=== PATIENT | female | born 1960 | race Caucasian/White ===

== ENCOUNTER 2019-09-04 20:05 | Emergency (ER) | payer SELFPAY ==
[~2019-09-04] VITALS: Ht 160 cm; Wt 80.0 kg
[2019-09-04] MEDS ORDERED: magnesium 2GM in 50ml NS 50 ML IV ONE (20:30)
[2019-09-04] MEDS ORDERED: acetaminophen 325mg tablet PO ONE (20:30)
[2019-09-04] MEDS ORDERED: aspirin 325mg tablet PO ONE (20:30)
[2019-09-04] MEDS ORDERED: normal saline 1000ml 1,000 ML IV ONE (20:30)
[2019-09-04 20:43] LABS: BASOPHILS # (AUTO) 0.1 X10'3 (0-0.2); EOSINOPHILS # (AUTO) 0.1 X10'3 (0-0.9); EOSINOPHILS % (AUTO) 1.4 % (0-6); HEMATOCRIT 45.6 % (35.0-45.0); HEMOGLOBIN 15.7 g/dl (12.0-16.0); LYMPHOCYTES # (AUTO) 2.4 X10'3 (1.1-4.8); LYMPHOCYTES % (AUTO) 24.5 % (21-51); MEAN CORPUSCULAR HEMOGLOBIN 30.2 PG (27.0-31.0); MEAN CORPUSCULAR HGB CONC 34.5 g/dL (33.0-36.5); MEAN CORPUSCULAR VOLUME 87.3 FL (78-98); MEAN PLATELET VOLUME 9.4 FL (7.4-10.4); MONOCYTES # (AUTO) 0.6 X10'3 (0-0.9); MONOCYTES % (AUTO) 6.1 % (2-12); NEUTROPHILS # (AUTO) 6.6 X10'3 (1.8-7.7); PLATELET COUNT 255 X10'3 (140-440); RED BLOOD COUNT 5.22 X10'6 (4.20-5.60); RED CELL DISTRIBUTION WIDTH 12.8 % (11.5-14.5); WHITE BLOOD COUNT 9.9 X10'3 (4.5-11.0)
[2019-09-04 20:45] LABS: CLARITY,URINE CLEAR (Clear); COLOR,URINE STRAW (Yellow); GLUCOSE, URINE NEGATIVE (Neg); KETONES,URINE NEGATIVE (Neg); LEUKOCYTE ESTERASE ,URINE SMALL (Neg); NITRITES, URINE NEGATIVE (Neg); OCCULT BLOOD,URINE NEGATIVE (Neg); PROTEIN,URINE NEGATIVE (Neg); UROBILINOGEN,URINE 0.2 E.U/dL (0.2-1.0)
[2019-09-04 20:52] LABS: UA COLLECTION TYPE CLN CATCH MIDSTREAM
[2019-09-04 20:53] LABS: BACTERIA,URINE NONE SEEN /HPF (Neg); RBC,URINE NONE SEEN /HPF (0-2); SQUAMOUS EPITHELIAL CELL,UR FEW /LPF (FEW)
[2019-09-04 20:54] LABS: WBC,URINE 0-4 /HPF (0-4)
[2019-09-04 20:55] LABS: ALANINE AMINOTRANSFERASE 31 U/L (12-78); ALBUMIN/GLOBULIN RATIO 1.1 (1.1-1.5); ALKALINE PHOSPHATASE 80 IU/L (46-116); ANION GAP 10 (8-16); ASPARTATE AMINO TRANSFERASE 16 U/L (10-37); BILIRUBIN,TOTAL 0.4 MG/DL (0.1-1.0); BLOOD UREA NITROGEN 19 MG/DL (7-18); BUN/CREATININE RATIO 20.2 (6.6-38.0); CALCIUM 9.6 MG/DL (8.5-10.1); CHLORIDE 108 MMOL/L (99-107); CREATININE 0.94 MG/DL (0.40-0.90); GLUCOSE 162 MG/DL (70-104); POTASSIUM 4.1 MMOL/L (3.5-5.1); SODIUM 143 MMOL/L (135-145); TOTAL PROTEIN 7.7 G/DL (6.4-8.2); eGFR 61 ML/MIN
[2019-09-04 20:57] LABS: PARTIAL THROMBOPLASTIN TIME 31 SECONDS (22-32)
--- NOTE | 2019-09-04 21:52 | NUR ---
pt ambulatory to restroom and back to bed. visitor at bedside. pt denies needs at this time.
[2019-09-04 23:02] VITALS: BP 121/67
== END 2019-09-05 00:03 | disposition home or self-care (01) ==
LOC: ER 20:06
DX: R00.2 Palpitations (principal); E07.9 Disorder of thyroid, unspecified
CPT/HCPCS: 36415; 71045; 80053; 81001; 84484; 85025; 85610; 85730; 87088; 93005; 96365; 99284; J3475; J7030

== ENCOUNTER 2020-04-08 13:50 | Emergency (ER) | payer SELFPAY ==
[~2020-04-08] VITALS: Ht 160 cm; Wt 90.0 kg
[2020-04-08 14:20] LABS: BASOPHILS # (AUTO) 0.1 X10'3 (0-0.2); EOSINOPHILS # (AUTO) 0.1 X10'3 (0-0.9); EOSINOPHILS % (AUTO) 0.7 % (0-6); HEMATOCRIT 42.8 % (35.0-45.0); HEMOGLOBIN 14.7 g/dl (12.0-16.0); LYMPHOCYTES # (AUTO) 1.8 X10'3 (1.1-4.8); LYMPHOCYTES % (AUTO) 20.5 % (21-51); MEAN CORPUSCULAR HEMOGLOBIN 30.1 PG (27.0-31.0); MEAN CORPUSCULAR HGB CONC 34.4 g/dL (33.0-36.5); MEAN CORPUSCULAR VOLUME 87.5 FL (78-98); MEAN PLATELET VOLUME 8.9 FL (7.4-10.4); MONOCYTES # (AUTO) 0.5 X10'3 (0-0.9); MONOCYTES % (AUTO) 5.7 % (2-12); NEUTROPHILS # (AUTO) 6.3 X10'3 (1.8-7.7); NEUTROPHILS % (AUTO) 72.1 % (42-75); PLATELET COUNT 238 X10'3 (140-440); RED BLOOD COUNT 4.89 X10'6 (4.20-5.60); WHITE BLOOD COUNT 8.7 X10'3 (4.5-11.0)
[2020-04-08 14:32] LABS: D-DIMER 0.29 MG/L FEU (0-0.50)
[2020-04-08 14:33] LABS: ALANINE AMINOTRANSFERASE 75 U/L (12-78); ALBUMIN 3.9 G/DL (3.4-5.0); ALBUMIN/GLOBULIN RATIO 1.3 (1.1-1.5); ALKALINE PHOSPHATASE 84 IU/L (46-116); ANION GAP 12 (8-16); ASPARTATE AMINO TRANSFERASE 35 U/L (10-37); BILIRUBIN,TOTAL 0.5 MG/DL (0.1-1.0); BLOOD UREA NITROGEN 11 MG/DL (7-18); BUN/CREATININE RATIO 11.8 (6.6-38.0); CALCIUM 9.7 MG/DL (8.5-10.1); CHLORIDE 106 MMOL/L (99-107); CREATININE 0.93 MG/DL (0.40-0.90); GLUCOSE 149 MG/DL (70-104); POTASSIUM 3.9 MMOL/L (3.5-5.1); SODIUM 142 MMOL/L (135-145); TOTAL CARBON DIOXIDE 23.8 MMOL/L (24-32); eGFR 61 ML/MIN
[2020-04-08 14:40] LABS: MAGNESIUM 2.4 MG/DL (1.5-2.4)
[2020-04-08 15:21] VITALS: BP 144/60
== END 2020-04-08 15:22 | disposition home or self-care (01) ==
LOC: ER 13:50
DX: R07.89 Other chest pain (principal)
CPT/HCPCS: 36415; 71045; 80053; 83735; 83880; 84484; 85025; 85379; 93005; 99285

== ENCOUNTER 2022-09-14 20:24 | Inpatient (IN) | payer SELFPAY ==
[~2022-09-14] VITALS: Ht 160 cm; Wt 88.6 kg
[2022-09-14 21:10] LABS: BASOPHILS # (AUTO) 0.1 X10'3 (0-0.2); BASOPHILS % (AUTO) 1.1 % (0-1); EOSINOPHILS # (AUTO) 0.1 X10'3 (0-0.9); EOSINOPHILS % (AUTO) 0.9 % (0-6); HEMATOCRIT 42.5 % (35.0-45.0); HEMOGLOBIN 14.3 g/dl (12.0-16.0); LYMPHOCYTES # (AUTO) 1.8 X10'3 (1.1-4.8); LYMPHOCYTES % (AUTO) 15.8 % (21-51); MEAN CORPUSCULAR HEMOGLOBIN 29.3 PG (27.0-31.0); MEAN CORPUSCULAR HGB CONC 33.6 g/dL (33.0-36.5); MEAN CORPUSCULAR VOLUME 87.1 FL (78-98); MEAN PLATELET VOLUME 8.7 FL (7.4-10.4); MONOCYTES # (AUTO) 0.7 X10'3 (0-0.9); NEUTROPHILS # (AUTO) 8.5 X10'3 (1.8-7.7); NEUTROPHILS % (AUTO) 76.2 % (42-75); PLATELET COUNT 235 X10'3 (140-440); RED BLOOD COUNT 4.88 X10'6 (4.20-5.60); RED CELL DISTRIBUTION WIDTH 13.1 % (11.5-14.5); WHITE BLOOD COUNT 11.2 X10'3 (4.5-11.0)
[2022-09-14 21:26] LABS: ALANINE AMINOTRANSFERASE 128 U/L (12-78); ALBUMIN 3.8 G/DL (3.4-5.0); ALBUMIN/GLOBULIN RATIO 1.2 (1.1-1.5); ALKALINE PHOSPHATASE 116 IU/L (46-116); ANION GAP 8 (8-16); ASPARTATE AMINO TRANSFERASE 51 U/L (10-37); BILIRUBIN,TOTAL 0.4 MG/DL (0.1-1.0); BLOOD UREA NITROGEN 16 MG/DL (7-18); BUN/CREATININE RATIO 17.8 (6.6-38.0); CALCIUM 9.1 MG/DL (8.5-10.1); CHLORIDE 103 MMOL/L (99-107); GLUCOSE 205 MG/DL (70-104); POTASSIUM 3.9 MMOL/L (3.5-5.1); SODIUM 139 MMOL/L (135-145); TOTAL CARBON DIOXIDE 28.2 MMOL/L (24-32); TOTAL PROTEIN 7.1 G/DL (6.4-8.2); eGFR 63 ML/MIN
[2022-09-14] MEDS ORDERED: mag hydrox/Alum hydrox/simeth 30ml oral suspension PO PRN (23:35)
[2022-09-14] MEDS ORDERED: PERFLUTREN PROTEIN-A MICROSPHR (Optison) 0.22 MG/ML 3ML VIAL IV ONE (23:35)
[2022-09-14] MEDS ORDERED: regadenoson 0.4mg/5ml syringe IV PRN (23:35)
[2022-09-14] MEDS ORDERED: potassium Cl 20 mEq SR tablet PO PRN ×2 (23:35)
[2022-09-14] MEDS ORDERED: ondansetron/PF 4mg/2ml inj IV PRN (23:35)
[2022-09-14] MEDS ORDERED: potassium Cl 40MEQ/1/2NS 520ml 520 ML IV PRN (23:35)
[2022-09-14] MEDS ORDERED: magnesium hydroxide 30ml (MOM) UD suspension PO PRN (23:35)
[2022-09-14] MEDS ORDERED: magnesium 4gm in 100ml NS 100 ML IV PRN (23:35)
[2022-09-14] MEDS ORDERED: magnesium Cl slow-release 64mg tablet PO PRN (23:35)
[2022-09-14] MEDS ORDERED: nitroGLYCERIN 0.4mg SUBLingual tab SL PRN (23:35)
[2022-09-14] MEDS ORDERED: aminophylline 500mg/20ml vial IV PRN (23:35)
[2022-09-14] MEDS ORDERED: normal saline 1000ml 1,000 ML IV SCH (23:35)
[2022-09-14] MEDS ORDERED: acetaminophen 325mg tablet PO PRN (23:35)
[2022-09-14] MEDS ORDERED: metoprolol tartrate 1mg/ml inj IV PRN (23:35)
[2022-09-14] MEDS ORDERED: insulin Lispro (HumaLOG) vial - multi-dose SQ SCH (23:40)
[2022-09-14] MEDS ORDERED: dextrose 50%-water 50ml dispensing syringe IV PRN ×2 (23:40)
[2022-09-14] MEDS ORDERED: DEXTROSE 15 GM of carb/4 tabs (each vial/BOTTLE has 4 tablets) PO PRN ×2 (23:40)
[2022-09-14] MEDS ORDERED: MESSAGE TO PHARMACY PO ONE (23:40)
[2022-09-14] MEDS ORDERED: glucagon, human recombinant 1mg kit SUBCUT PRN (23:40)
[2022-09-14] MEDS ORDERED: BUPR100T15 PO (23:55)
[2022-09-15] VITALS (11 sets, daily range): BP systolic 109–146; BP diastolic 52–89
[2022-09-15] MEDS ORDERED: CHOL10006 PO (01:26)
[2022-09-15] MEDS ORDERED: CYAN100097 PO (01:26)
[2022-09-15] MEDS ORDERED: LEVO50TA PO (01:26)
[2022-09-15] MEDS ORDERED: VITA-288 PO (01:29)
[2022-09-15 07:13] LABS: BASOPHILS # (AUTO) 0.1 X10'3 (0-0.2); BASOPHILS % (AUTO) 0.8 % (0-1); EOSINOPHILS # (AUTO) 0.1 X10'3 (0-0.9); EOSINOPHILS % (AUTO) 0.8 % (0-6); HEMATOCRIT 41.8 % (35.0-45.0); HEMOGLOBIN 14.3 g/dl (12.0-16.0); LYMPHOCYTES # (AUTO) 1.4 X10'3 (1.1-4.8); MEAN CORPUSCULAR HEMOGLOBIN 29.7 PG (27.0-31.0); MEAN CORPUSCULAR HGB CONC 34.2 g/dL (33.0-36.5); MEAN CORPUSCULAR VOLUME 86.9 FL (78-98); MEAN PLATELET VOLUME 8.8 FL (7.4-10.4); MONOCYTES # (AUTO) 0.6 X10'3 (0-0.9); MONOCYTES % (AUTO) 6.1 % (2-12); NEUTROPHILS # (AUTO) 7.2 X10'3 (1.8-7.7); NEUTROPHILS % (AUTO) 77.3 % (42-75); PLATELET COUNT 221 X10'3 (140-440); RED CELL DISTRIBUTION WIDTH 13.4 % (11.5-14.5); WHITE BLOOD COUNT 9.3 X10'3 (4.5-11.0)
[2022-09-15 07:50] LABS: ALANINE AMINOTRANSFERASE 118 U/L (12-78); ALBUMIN 3.8 G/DL (3.4-5.0); ALBUMIN/GLOBULIN RATIO 1.2 (1.1-1.5); ALKALINE PHOSPHATASE 117 IU/L (46-116); ANION GAP 10 (8-16); ASPARTATE AMINO TRANSFERASE 47 U/L (10-37); BILIRUBIN,TOTAL 0.7 MG/DL (0.1-1.0); BLOOD UREA NITROGEN 15 MG/DL (7-18); BUN/CREATININE RATIO 17.2 (6.6-38.0); CALCIUM 8.9 MG/DL (8.5-10.1); CHLORIDE 103 MMOL/L (99-107); CREATININE 0.87 MG/DL (0.40-0.90); GLUCOSE 166 MG/DL (70-104); MAGNESIUM 2.2 MG/DL (1.5-2.4); SODIUM 139 MMOL/L (135-145); TOTAL PROTEIN 6.9 G/DL (6.4-8.2); eGFR 66 ML/MIN
[2022-09-15] MEDS ORDERED: docusate sod 100mg capsule PO SCH (08:00)
[2022-09-15] MEDS ORDERED: heparin, porcine 5000 units/ml vial SQ SCH (08:00)
[2022-09-15] MEDS ORDERED: cyanocobalamin 500mcg tablet PO SCH (08:00)
[2022-09-15] MEDS ORDERED: levoTHYROXINE 25mcg tablet PO SCH (08:00)
[2022-09-15] MEDS ORDERED: cholecalciferol (vitamin D3) 1,000 unit (25mcg) tablet PO SCH (08:00)
[2022-09-15] MEDS ORDERED: vitamin E 400 unit capsule PO SCH (08:00)
[2022-09-15] MEDS ORDERED: aspirin 325mg tablet, delayed-release (Ecotrin) PO SCH (08:00)
[2022-09-15] MEDS ORDERED: K and/or MAG REPLACEMENT MC SCH (08:00)
[2022-09-15] MEDS ORDERED: buPROPion SR 100mg tab PO SCH (08:00)
--- NOTE | 2022-09-15 10:10 | NUR ---
Pt to Nuc Med on monitor with RN. Pt able to transfer self from bed to wheelchair without assistance. No chest pain/discomfort, no SOB.
[2022-09-15] MEDS ORDERED: aminophylline inj. 10 ML IV ONE (11:34)
--- NOTE | 2022-09-15 12:45 | NUR ---
PT BACK TO ROOM 6, REPORT TO JASON MOYER
== END 2022-09-15 14:25 | disposition home or self-care (01) | DRG 392 ==
LOC: ER 20:24 → ED HOLD 23:35
PROVIDERS: ADMIT Internal Medicine; ATTEND Family Medicine
PROC: 4A02XM4 Measurement of Cardiac Total Activity, External Approach (ICD-10-PCS; principal; 2022-09-15)
PROC: 3E033HZ Introduction of Radioactive Substance into Peripheral Vein, Percutaneous Approach (ICD-10-PCS; 2022-09-15)
DX: K21.9 Gastro-esophageal reflux disease without esophagitis (principal); R07.89 Other chest pain; E03.9 Hypothyroidism, unspecified; E66.9 Obesity, unspecified; E78.5 Hyperlipidemia, unspecified; K76.0 Fatty (change of) liver, not elsewhere classified; E11.9 Type 2 diabetes mellitus without complications; R74.01 Elevation of levels of liver transaminase levels; Z79.84 Long term (current) use of oral hypoglycemic drugs; Z79.890 Hormone replacement therapy; Z80.9 Family history of malignant neoplasm, unspecified; Z68.34 Body mass index [BMI] 34.0-34.9, adult; Z79.899 Other long term (current) drug therapy
CPT/HCPCS: 36415; 71045; 78452; 80053; 83735; 83880; 84484; 85025; 93005; 93017; 93306; 99285; A9500; G0378; J0280; J1815; J2785; J7030